=== PATIENT | female | born 1960 | race Two or more races ===

== ENCOUNTER 2020-01-24 15:00 | Inpatient (IN) | payer OTHER ==
[~2020-01-24] VITALS: Ht 154.9 cm; Wt 104.3 kg
--- NOTE | 2020-01-24 16:31 | NUR ---
RECEIVED PATIENT BY W/CHAIR FROM [facility] TO [facility], 325 P;ACED INTO BED FIXED AND MADE COMFORTABLE PATIENT IS ALERT AND ORIENTED ORIENTED TO ROOM AND FACILITY PROTOCOL CALLED DR ARNOLDO PRINCE COMFORTABLE.
[2020-01-24 16:45] VITALS: BP 131/100
[2020-01-24] MEDS ORDERED: DEXTROSE 50% 50 ML DISP.SYRIN IV PRN (18:00)
[2020-01-24] MEDS ORDERED: HYDROCODONE/APAP 5-325MG TABLET PO PRN (18:45)
[2020-01-24] MEDS ORDERED: ACETAMINOPHEN 325 MG TABLET PO PRN (18:45)
[2020-01-24] MEDS ORDERED: CYCLOBENZAPRINE HCL 10 MG TABLET PO PRN (18:45)
[2020-01-24] MEDS ORDERED: MAGNESIUM HYDROXIDE 30 ML LIQUID UDC PO PRN (18:45)
[2020-01-24] MEDS ORDERED: ZOLPIDEM 5 MG TABLET PO PRN (18:45)
[2020-01-24] MEDS: HYDROCODONE/APAP 10-325 MG TABLET PO PRN (18:48)
[2020-01-24] MEDS: IV NS 1000 ML 1,000 ML IV PRN (19:17)
--- NOTE | 2020-01-24 19:30 | NUR ---
RECEIVED PT AWAKE, ALERT AND ORIENTEDX4. PT IN NO ACUTE DISTRESS. IV INTACT. SAFETY AND COMFORT PROVIDED. ALL NEEDS ARE MET. WILL CONTINUE TO MONITOR.
[2020-01-24 20:00] VITALS: BP 151/67
[2020-01-24] MEDS: CLOTRIMAZOLE 1% CREAM 30 GM TUBE TOP SCH (20:28)
[2020-01-24] MEDS: Z GUARD REMEDY PASTE 57 GM TUBE TOP SCH (20:28)
[2020-01-24] MEDS: INSULIN REGULAR, HUMAN 300 UNIT/3 ML VIAL SQ PRN (20:36)
[2020-01-24] MEDS: BLOOD SUGAR DIAGNOSTIC 1 EACH STRIP VI SCH (20:51)
[2020-01-24] MEDS ORDERED: INSULIN GLARGINE,HUM 300 UNITS/3 ML CARTRIDGE SQ SCH (21:00)
[2020-01-24 22:00] VITALS: BP 138/97
[2020-01-25 04:00] VITALS: BP 135/119
[2020-01-25] MEDS: HYDROCODONE/APAP 10-325 MG TABLET PO PRN (05:47)
--- NOTE | 2020-01-25 05:59 | NUR ---
PT SLEPT INTERMITTENTLY. PT IN NO ACUTE DISTRESS. IV INTACT. PRESCRIBED MEDICATION GIVEN AND PT TOLERATED IT WELL. NORCO GIVEN AT 0547H AND TYLENOL FOR PAIN. PT TOLERATED IT WELL.SAFETY AND COMFORT PROVIDED. ALL NEEDS ARE MET.WILL ENDORSE TO INCOMING NURSE FOR CONTINUITY OF CARE.
[2020-01-25 06:11] LABS: BASOPHILS % (AUTO) 0.3 % (0.0-2.0); EOSINOPHILS # (AUTO) 0.1 K/uL (0.0-0.7); EOSINOPHILS % (AUTO) 1.3 % (0.0-7.0); HEMATOCRIT 40.7 % (31.2-41.9); HEMOGLOBIN 13.5 g/dL (10.9-14.3); LYMPHOCYTES # (AUTO) 2.5 K/uL (20.0-40.0); LYMPHOCYTES % (AUTO) 25.3 % (20.5-51.5); MEAN CORPUSCULAR HEMOGLOBIN 29.3 uug (24.7-32.8); MEAN CORPUSCULAR HGB CONC 33 g/dL (32.3-35.6); MEAN CORPUSCULAR VOLUME 88.3 fL (75.5-95.3); MONOCYTES # (AUTO) 0.7 K/uL (2.0-10.0); MONOCYTES % (AUTO) 7.1 % (0.0-11.0); NEUTROPHILS # (AUTO) 6.6 K/uL (1.8-8.9); PLATELET COUNT (AUTO) 250 K/uL (179-408)
[2020-01-25] MEDS: BLOOD SUGAR DIAGNOSTIC 1 EACH STRIP VI SCH ×4 (06:35→20:26)
[2020-01-25] MEDS: PANTOPRAZOLE SODIUM 40 MG TABLET.DR PO SCH (06:35)
[2020-01-25 06:55] LABS: CREATININE 0.7 mg/dL (0.6-1.3); MAGNESIUM 1.4 mg/dL (1.8-2.4); PHOSPHOROUS 4.1 mg/dL (2.5-4.9); POTASSIUM 3.2 mmol/L (3.5-5.1)
--- NOTE | 2020-01-25 08:00 | NUR ---
RECEIVED PT AWAKE, ALERT AND ORIENTEDX4. PT IN NO ACUTE DISTRESS OR SOB. IV INTACT. SAFETY AND COMFORT PROVIDED. ALL NEEDS ARE MET. WILL CONTINUE TO MONITOR FOR SAFETY AND COMFORT.
[2020-01-25 08:19] LABS: THYROID STIMULATING HORMONE 1.015 mIU/mL (0.358-3.740)
[2020-01-25] MEDS: INSULIN REGULAR, HUMAN 300 UNIT/3 ML VIAL SQ PRN ×4 (08:37→20:36)
[2020-01-25] MEDS: GABAPENTIN 300 MG CAPSULE PO SCH ×3 (08:40→17:40)
[2020-01-25] MEDS: ALPRAZOLAM 0.25 MG TABLET PO SCH ×2 (08:40→17:40)
[2020-01-25] MEDS: METFORMIN HCL 500 MG TABLET PO SCH ×2 (08:40→17:45)
[2020-01-25] MEDS: MONTELUKAST SODIUM 10 MG TABLET PO SCH (08:41)
[2020-01-25] MEDS: DOCUSATE SODIUM 100 MG CAPSULE PO SCH (08:41)
[2020-01-25] MEDS: FLUOXETINE HCL 20 MG CAPSULE PO SCH (08:41)
[2020-01-25] MEDS: ASPIRIN 81 MG TAB.CHEW PO SCH (08:42)
[2020-01-25] MEDS: RANOLAZINE 500 MG TAB.ER.12H PO SCH ×2 (08:42→20:23)
[2020-01-25] MEDS: ONDANSETRON 4 MG/2 ML VIAL IV PRN (10:08)
[2020-01-25] MEDS: CLOTRIMAZOLE 1% CREAM 30 GM TUBE TOP SCH ×2 (10:13→20:27)
[2020-01-25] MEDS: Z GUARD REMEDY PASTE 57 GM TUBE TOP SCH ×2 (10:13→23:38)
[2020-01-25] MEDS: INSULIN GLARGINE,HUM 300 UNITS/3 ML CARTRIDGE SQ SCH ×2 (10:54→20:35)
[2020-01-25] MEDS ORDERED: POTASSIUM CHLORIDE 20 MEQ TAB.PRT.SR PO ONE (11:15)
[2020-01-25 11:19] VITALS: BP 123/78
[2020-01-25] MEDS: MAGNESIUM SULFATE/D5W 100 ML IV SCH ×2 (11:46→13:04)
[2020-01-25] MEDS ORDERED: CEFTRIAXONE 1 G VIAL IM SCH (13:00)
[2020-01-25] MEDS: CEFTRIAXONE 1 G in IV DEXTROSE 5% 50 ML IV SCH (13:14)
[2020-01-25 15:23] VITALS: BP 107/64
--- NOTE | 2020-01-25 18:00 | NUR ---
PT RESTING COMFORTABLY IN BED. NO ACUTE DISTRESS OR SOB NOTED. PT ALERT AND COOPERATIVE X4. IVF RUNNING. IV SITE CHANGED. PT MEDS AND DIET COMPLIANT. WILL GIVE REPORT ACCORDINGLY.
[2020-01-25] MEDS: IV NS 1000 ML 1,000 ML IV PRN (18:13)
[2020-01-25 20:14] VITALS: BP 173/79
[2020-01-25] MEDS: Z GUARD REMEDY PASTE 57 GM TUBE TOP PRN (20:27)
[2020-01-25] MEDS: MORPHINE SULFATE 2 MG/1 ML DISP.SYRIN IV PRN (20:30)
--- NOTE | 2020-01-25 21:10 | NUR ---
PATIENT COMPLAINS OF DIFFICULTY BREATHING. AUSCULTATED LUNG SOUNDS AND PATIENT PRESENTS WITH WHEEZING. CONTACTED DR. FONG. NEW ORDER FOR ALBUTEROL NEBULIZER Q6H PRN AND CHEST X-RAY FOR 0700 IN THE MORNING.
[2020-01-25] MEDS: ALBUTEROL SULFATE 2.5 MG/3 ML NEBU NEB PRN (21:54)
[2020-01-26] MEDS: MORPHINE SULFATE 2 MG/1 ML DISP.SYRIN IV PRN ×3 (00:59→15:54)
--- NOTE | 2020-01-26 01:15 | NUR ---
RECEIVED PATIENT AWAKE IN BED. AO X 4. IV SITE ON LEFT HAND 22G FLUSHING, PATENT, AND INTACT WITH NORMAL SALINE RUNNING AT 75 ML/ HR. NO SHORTNESS OF BREATH NOTED IN PATIENT. NO SIGNS/ SYMPTOMS OF DISTRESS. IMMEDIATE NEEDS ATTENDED. WILL CONTINUE TO MONITOR. Addendum: 01/26/20 at 0117 by SANIA DONG RN NOTE FOR TIME 1924
[2020-01-26 04:02] VITALS: BP 130/72
[2020-01-26] MEDS: ALBUTEROL SULFATE 2.5 MG/3 ML NEBU NEB PRN ×3 (04:33→15:55)
--- NOTE | 2020-01-26 05:55 | NUR ---
PATIENT SLEPT WELL THROUGHOUT THE NIGHT. INFORMED AND EDUCATED ABOUT STRICT INTAKE AND OUTPUT. NO ACUTE CHANGE IN PATIENT CONDITION. PATIENT COMPLAINED OF PAIN THROUGHOUT THE NIGHT, MEDICATED APPROPRIATELY WITH PRN PAIN MEDICATIONS. TOLERATED MEDICATIONS. WILL ENDORSE ACCORDINGLY.
[2020-01-26] MEDS: PANTOPRAZOLE SODIUM 40 MG TABLET.DR PO SCH (06:04)
[2020-01-26 06:17] LABS: BASOPHILS % (AUTO) 0.4 % (0.0-2.0); EOSINOPHILS # (AUTO) 0.2 K/uL (0.0-0.7); EOSINOPHILS % (AUTO) 2.1 % (0.0-7.0); HEMATOCRIT 39.1 % (31.2-41.9); HEMOGLOBIN 12.7 g/dL (10.9-14.3); LYMPHOCYTES # (AUTO) 2.4 K/uL (20.0-40.0); LYMPHOCYTES % (AUTO) 27.2 % (20.5-51.5); MEAN CORPUSCULAR HEMOGLOBIN 29.2 uug (24.7-32.8); MEAN CORPUSCULAR HGB CONC 33 g/dL (32.3-35.6); MEAN CORPUSCULAR VOLUME 89.4 fL (75.5-95.3); MONOCYTES # (AUTO) 0.6 K/uL (2.0-10.0); MONOCYTES % (AUTO) 7.3 % (0.0-11.0); NEUTROPHILS # (AUTO) 5.5 K/uL (1.8-8.9); PLATELET COUNT (AUTO) 234 K/uL (179-408); RED BLOOD CELL COUNT(AUTO) 4.37 MIL/uL (3.63-4.92); WHITE BLOOD COUNT (AUTO) 8.7 K/uL (3.8-11.8)
[2020-01-26] MEDS: BLOOD SUGAR DIAGNOSTIC 1 EACH STRIP VI SCH ×4 (06:31→21:59)
[2020-01-26 06:59] LABS: BILIRUBIN,TOTAL 0.2 mg/dL (0.2-1.0); CREATININE 0.8 mg/dL (0.6-1.3); MAGNESIUM 1.5 mg/dL (1.8-2.4); POTASSIUM 4.2 mmol/L (3.5-5.1); TOTAL PROTEIN, SERUM 6.2 g/dL (6.4-8.2)
--- NOTE | 2020-01-26 07:31 | NUR ---
RECEIVED PATIENT ASLEEP IN BED . NO S/S OF ACUTE DISTRESS NOTED. NO C/O PAIN AT THIS TIME. SAFETY AND COMFORT PROVIDED . CALL LIGHT WITHIN REACH. WILL CONTINUE TO MONITOR
[2020-01-26] MEDS ORDERED: MAGNESIUM OXIDE 400 MG TABLET PO ONE (08:30)
[2020-01-26] MEDS: FLUOXETINE HCL 20 MG CAPSULE PO SCH (09:05)
[2020-01-26] MEDS: RANOLAZINE 500 MG TAB.ER.12H PO SCH ×2 (09:05→21:53)
[2020-01-26] MEDS: GABAPENTIN 300 MG CAPSULE PO SCH ×3 (09:05→17:22)
[2020-01-26] MEDS: DOCUSATE SODIUM 100 MG CAPSULE PO SCH (09:05)
[2020-01-26] MEDS: METFORMIN HCL 500 MG TABLET PO SCH ×2 (09:05→18:06)
[2020-01-26] MEDS: ASPIRIN 81 MG TAB.CHEW PO SCH (09:06)
[2020-01-26] MEDS: ALPRAZOLAM 0.25 MG TABLET PO SCH ×2 (09:06→17:22)
[2020-01-26] MEDS: MONTELUKAST SODIUM 10 MG TABLET PO SCH (09:06)
[2020-01-26] MEDS: INSULIN GLARGINE,HUM 300 UNITS/3 ML CARTRIDGE SQ SCH ×2 (09:10→22:02)
[2020-01-26] MEDS: INSULIN REGULAR, HUMAN 300 UNIT/3 ML VIAL SQ PRN ×4 (09:12→22:03)
[2020-01-26] MEDS: CLOTRIMAZOLE 1% CREAM 30 GM TUBE TOP SCH ×2 (09:22→21:55)
[2020-01-26] MEDS: Z GUARD REMEDY PASTE 57 GM TUBE TOP PRN ×2 (09:22→09:23)
[2020-01-26] MEDS: IV NS 1000 ML 1,000 ML IV PRN (09:24)
[2020-01-26] MEDS: Z GUARD REMEDY PASTE 57 GM TUBE TOP SCH ×2 (09:26→21:55)
[2020-01-26] MEDS: ONDANSETRON 4 MG/2 ML VIAL IV PRN (11:53)
[2020-01-26 12:03] VITALS: BP 136/75
[2020-01-26] MEDS: CEFTRIAXONE 1 G in IV DEXTROSE 5% 50 ML IV SCH (12:34)
[2020-01-26 16:13] VITALS: BP 151/81
[2020-01-26] MEDS: PHENAZOPYRIDINE HCL 100 MG TABLET PO SCH ×2 (16:15→17:21)
--- NOTE | 2020-01-26 18:51 | NUR ---
PATIENT RESTING IN BED . NO S/S OF ACUTE DISTRESS NOTED. C/O PAIN AND PRN PAIN MEDICATIONS GIVEN EARLIER. SAFETY AND COMFORT PROVIDED . CALL LIGHT WITHIN REACH. WILL CONTINUE TO MONITOR
[2020-01-26] MEDS ORDERED: FLUCONAZOLE 200 MG/NS 100ML IV 200 MG in PREMIXED 1 EACH IV ONE (19:53)
--- NOTE | 2020-01-26 20:00 | NUR ---
Patient received into care, laying in bed, watching television. Patient is alert/oriented x4 and has no complaints of pain or discomfort at this time. All safety and fall precaution measures are in place. Call light and personal items are within reach at all times. Will continue to monitor and assess.
--- NOTE | 2020-01-26 20:38 | NUR ---
Called pharmacy regarding new order for IV diflucan and spoke with Corey. Corey advised will be delivered soon.
[2020-01-26] MEDS ORDERED: MAGNESIUM OXIDE 400 MG TABLET PO SCH (21:00)
[2020-01-26 21:22] VITALS: BP 163/100
[2020-01-26 21:24] VITALS: BP 163/100
[2020-01-26] MEDS: ACIDOPHILUS/BULGARICUS CHEW TAB PO SCH (21:53)
[2020-01-26] MEDS: CEphaleXIN 500 MG CAPSULE PO SCH (21:53)
[2020-01-26] MEDS: FLUTICASONE/VILANTEROL 1 EACH BLST.W.DEV INH SCH (22:21)
[2020-01-27] MEDS: MORPHINE SULFATE 2 MG/1 ML DISP.SYRIN IV PRN ×2 (00:46→05:03)
[2020-01-27] MEDS: IV NS 1000 ML 1,000 ML IV PRN (00:51)
--- NOTE | 2020-01-27 04:36 | NUR ---
Patient requesting PRN breathing treatment. Nurse called RT, spoke with Brandie who advised she will come after done in ICU.
[2020-01-27] MEDS: ALBUTEROL SULFATE 2.5 MG/3 ML NEBU NEB PRN ×3 (04:39→13:38)
[2020-01-27] MEDS: CEphaleXIN 500 MG CAPSULE PO SCH ×2 (05:03→13:17)
[2020-01-27 05:08] VITALS: BP 162/72
--- NOTE | 2020-01-27 05:43 | NUR ---
Patient slept intermittently throughout night with complaints of pain addresses with prescribed analgesics. Patient was compliant with all aspects of care and all nursing needs were met promptly. Safety and fall precaution measures remain in place. Call light and personal items remain within reach at all times.
[2020-01-27] MEDS: PANTOPRAZOLE SODIUM 40 MG TABLET.DR PO SCH (06:08)
[2020-01-27] MEDS: BLOOD SUGAR DIAGNOSTIC 1 EACH STRIP VI SCH ×3 (06:34→15:49)
[2020-01-27] MEDS: INSULIN REGULAR, HUMAN 300 UNIT/3 ML VIAL SQ PRN ×3 (07:47→16:06)
[2020-01-27] MEDS: DOCUSATE SODIUM 100 MG CAPSULE PO SCH (08:01)
[2020-01-27] MEDS: FLUTICASONE/VILANTEROL 1 EACH BLST.W.DEV INH SCH (08:01)
[2020-01-27] MEDS: ACIDOPHILUS/BULGARICUS CHEW TAB PO SCH (08:01)
[2020-01-27] MEDS: PHENAZOPYRIDINE HCL 100 MG TABLET PO SCH ×2 (08:01→16:01)
[2020-01-27] MEDS: FLUOXETINE HCL 20 MG CAPSULE PO SCH (08:01)
[2020-01-27] MEDS: ALPRAZOLAM 0.25 MG TABLET PO SCH ×2 (08:01→16:01)
[2020-01-27] MEDS: METFORMIN HCL 500 MG TABLET PO SCH ×2 (08:01→17:14)
[2020-01-27] MEDS: GABAPENTIN 300 MG CAPSULE PO SCH ×3 (08:01→16:01)
[2020-01-27] MEDS: RANOLAZINE 500 MG TAB.ER.12H PO SCH (08:01)
[2020-01-27] MEDS: ASPIRIN 81 MG TAB.CHEW PO SCH (08:01)
[2020-01-27] MEDS: MONTELUKAST SODIUM 10 MG TABLET PO SCH (08:02)
[2020-01-27] MEDS: CLOTRIMAZOLE 1% CREAM 30 GM TUBE TOP SCH (08:08)
[2020-01-27] MEDS: Z GUARD REMEDY PASTE 57 GM TUBE TOP SCH (08:10)
[2020-01-27] MEDS: INSULIN GLARGINE,HUM 300 UNITS/3 ML CARTRIDGE SQ SCH (08:20)
[2020-01-27 11:51] VITALS: BP 143/86
[2020-01-27] MEDS ORDERED: FLUCONAZOLE 200 MG/NS 100ML IV 100 MG in PREMIXED 1 EACH IV ONE (12:00)
[2020-01-27] MEDS: HYDROCODONE/APAP 10-325 MG TABLET PO PRN (13:17)
[2020-01-27 16:20] VITALS: BP 155/79
--- NOTE | 2020-01-27 17:36 | NUR ---
dc orders received noted and carried out,dc instruction and education given to the pt ,pt verbalized understanding all the instruction ,dc heplock per md orders,pt left the facility via private car in stable condition
== END 2020-01-27 17:45 | disposition home or self-care (01) | DRG 720 ==
LOC: MEDSURG3 15:30
PROVIDERS: ATTEND Internal Medicine
DX: A41.9 Sepsis, unspecified organism (principal); E11.65 Type 2 diabetes mellitus with hyperglycemia; E66.01 Morbid (severe) obesity due to excess calories; J44.1 Chronic obstructive pulmonary disease with (acute) exacerbation; B36.9 Superficial mycosis, unspecified; I25.10 Atherosclerotic heart disease of native coronary artery without angina pectoris; N39.0 Urinary tract infection, site not specified; E78.5 Hyperlipidemia, unspecified; B96.20 Unspecified Escherichia coli [E. coli] as the cause of diseases classified elsewhere; N76.0 Acute vaginitis; F32.9 Major depressive disorder, single episode, unspecified; F41.9 Anxiety disorder, unspecified; Z95.5 Presence of coronary angioplasty implant and graft; Z68.41 Body mass index [BMI] 40.0-44.9, adult; Z79.82 Long term (current) use of aspirin; Z79.899 Other long term (current) drug therapy; I10 Essential (primary) hypertension; Z91.14 Patient's other noncompliance with medication regimen
CPT/HCPCS: 36415; 71045; 83735; 84100; 84443; 85025; 93307; 94640; 94664; G0378; J0696; J1450; J1815; J2270; J2405; J3475; J7030; J7060